=== PATIENT | female | born 1995 | race Caucasian/White ===

== ENCOUNTER 2017-11-21 13:02 | Outpatient (CLI) | payer OTHER | END 2017-11-21 13:03 | disposition home or self-care (01) | LOC: BICULT 13:02 | PROVIDERS: ATTEND Specialist | DX: E01.0 Iodine-deficiency related diffuse (endemic) goiter (principal) | CPT/HCPCS: 76536 ==

== ENCOUNTER 2018-02-24 19:16 | Day surgery (SDC) | payer OTHER ==
[2018-02-24 19:41] VITALS: BP 124/71; TEMP 98.8; BMI 39.5
[2018-02-24 20:15] LABS: Amnisure Internal Control QC ACCEPTABLE (ACCEPTABLE); Amnisure Test No Membranes Rupture (No Rupture)
--- NOTE | 2018-02-25 02:05 | SS ---
LABOR AND DELIVERY TRIAGE NOTE DATE OF EVALUATION: 02/24/2018 REGULAR PHYSICIAN: Ceci Sparks DO EVALUATING PHYSICIAN: Rob Howard MD CHIEF COMPLAINT: "leaking fluid at home" HISTORY OF PRESENT ILLNESS: Ms. Voss is a 22-year-old with an estimated date of confinement of 03/07/2018, who presents complaining of potentially leaking fluid since earlier today. She denies a gush of fluid, but states that she thought she was leaking only a small amount. She denies vaginal bleeding or decreased movement. Her care has been with Dr. Sparks and has been uncomplicated. PAST MEDICAL HISTORY: None. PAST SURGICAL HISTORY: Tonsillectomy. CURRENT MEDICATIONS: vitamins. ALLERGIES: None. SOCIAL HISTORY: Denies tobacco, alcohol, or drug use. FAMILY HISTORY: Unremarkable. REVIEW OF SYSTEMS: She denies nausea, vomiting, fever, chills, or decreased movement. PHYSICAL EXAMINATION: VITAL SIGNS: Stable. She is afebrile. ABDOMEN: Soft, nontender, and gravid. Pelvic exam by labor nurse in triage shows the cervix to be 1 thick with a vertex high. heart rate tracing is stable. There were spontaneous accelerations. Irregular uterine contractions are seen every 3-5 minutes. These are mild to palpation. AmniSure returns negative. ASSESSMENT: 1. 38-week intrauterine . 2. No evidence of ruptured membranes. PLAN: She has a followup appointment with Dr. Sparks later this week. She was given complete labor precautions and voiced understanding of these and was sent home in good condition. [facility]
== END 2018-02-24 20:58 | disposition home or self-care (01) ==
LOC: L&D/OP 19:16
PROVIDERS: ATTEND Obstetrics & Gynecology
DX: Z03.79 Encounter for other suspected maternal and fetal conditions ruled out (principal); Z3A.38 38 weeks gestation of pregnancy
CPT/HCPCS: 84112; 99283

== ENCOUNTER 2018-03-04 09:17 | Day surgery (SDC) | payer OTHER ==
[2018-03-04 10:23] VITALS: BMI 39.5
--- NOTE | 2018-03-04 12:58 | HP ---
DATE OF SERVICE: 03/04/2018 PRIMARY INTERNET CAFE MANAGER: Dr. Ceci Sparks. CHIEF COMPLAINT: Nausea. HISTORY OF PRESENT ILLNESS: The patient is a 22-year-old G1, P0 female with an intrauterine pregnanc y at 39 weeks and 4 days, who presents to Labor and Delivery with concerns of nausea and elevated blo od pressures at home. Patient is scheduled for an induction of labor this . She denies uter ine contractions, vaginal bleeding, leakage of fluid, any recent fever, fall, headache, chest pain, s hortness of breath. The nausea has since resolved at the time of my evaluation. The patient denies constipation, diarrhea, any new rashes, hip problems, knee problems, muscle weakness, vaginal bleedin g, leakage of fluid, urinary urgency or frequency. PAST MEDICAL HISTORY: Negative. PAST SURGICAL HISTORY: Tonsillectomy as a child. SOCIAL HISTORY: Denies drug, alcohol or tobacco use. ALLERGIES: No known drug allergies. MEDICATIONS: vitamins. OB LABORATORY DATA: Blood type is O positive, antibody screen is negative, HIV is nonreactive, RPR i s nonreactive in the third trimester. Hepatitis B surface antigen is nonreactive. One hour Glucola was 97. She is rubella nonimmune. REVIEW OF SYSTEMS: Per HPI. PHYSICAL EXAMINATION: VITAL SIGNS: Blood pressure 103/64, heart rate of 104, respiratory rate 18, satting 96% on room air, temperature 98.5. GENERAL: She appears to be in no acute distress. She is alert and oriented, cooperative and pleasan t to interact with. HEENT: Head is normocephalic, atraumatic. LUNGS: Clear to auscultation bilaterally. HEART: Has a regular rate and rhythm. ABDOMEN: Soft, gravid, nontender to palpation. EXTREMITIES: Nontender with some mild bilateral edema. GENITOURINARY: Has been deferred. HEART TRACING: Fetus has a baseline in the 130s with moderate long-term variability, positive accelerations, no decelerations. Tocometer shows some irritability. ASSESSMENT AND PLAN: The patient is a 22-year-old G1, P0 with an intrauterine at 39 weeks and 4 days, who has had spontaneous resolution of her nausea. Blood pressures all appear within norm al limits here at the hospital after a one hour of evaluation. The patient is being discharged to [facility] with term labor precautions. She is scheduled for an induction of labor on .
== END 2018-03-04 11:29 | disposition home or self-care (01) ==
LOC: L&D/OP 09:17
PROVIDERS: ATTEND Obstetrics & Gynecology
DX: O99.89 Other specified diseases and conditions complicating pregnancy, childbirth and the puerperium (principal); R03.0 Elevated blood-pressure reading, without diagnosis of hypertension; R11.0 Nausea; Z3A.39 39 weeks gestation of pregnancy
CPT/HCPCS: 99282

== ENCOUNTER 2018-03-07 05:30 | Inpatient (IN) | payer OTHER ==
--- NOTE | 2018-03-05 20:48 | PDOC.LDHP ---
Labor and Delivery H&P Chief complaint: scheduled induction HPI: 22 yo G1 @ 40w0d by LMP c/w 2nd trimester sono who presents for EIOL. Antepartum course benign. Current gestational age (weeks): 40 Due date: 03/07/18 Dating criteria: last menstrual period Grav: 1 Para: 0 Current complications: none Abnormal US findings: No Past Medical History: Obesity Current medications: pre- vitamins Previous surgical history: other (Tonsillectomy) Allergies/Adverse Reactions: Allergies Allergy/AdvReac Type Severity Reaction Status Date / Time No Known Allergies Allergy Verified 03/07/18 09:53 Social history: none - Physical Exam Vital signs reviewed and normal: yes General: NAD Heart: RRR Lungs: nonlabored breathing Abdomen: gravid Extremeties: no edema FHT: category 1 (130s, mod jon, +accels, no decels) [place] contractions every: q1-2 min - Vaginal Exam cm dilated: 3 (cephalic) Effacement: 75% Station: -2 - OB Labs Blood type: O RH: positive Antibody Screen: negative HIV: negative RPR: negative HEPSAg: negative 1 hour GCT: negative GBS: negative Urine drug screen: not done Rubella: non-immune Additional Labs: Carrier screening negative - Assessment 40w0d IUP Class III Obesity EIOL - Plan Plan: admit to L&D, informed consent obtained, anesthesia consult for pain management -: Started pitocin for IOL
[2018-03-07] MEDS ORDERED: Lidocaine 1% (PF) 30 ML VIAL SC PRN (08:37)
[2018-03-07] MEDS ORDERED: Misoprostol 200 MCG TAB PR PRN (08:37)
[2018-03-07] MEDS ORDERED: Diphenoxylate HCl/Atropine Tablet PO PRN (08:37)
[2018-03-07] MEDS ORDERED: Methylergonovine 0.2 MG/ML VIAL IM PRN (08:37)
[2018-03-07] MEDS ORDERED: NS / Oxytocin 40 units/1000ml 1,000 ML IV PRN (08:37)
[2018-03-07] MEDS ORDERED: Carboprost 250 MCG/ML AMP IM PRN (08:37)
[2018-03-07] MEDS ORDERED: Acetaminophen 500 MG TAB PO PRN (08:37)
[2018-03-07] MEDS ORDERED: Butorphanol Tartrate 1 MG/ML VIAL SLOW IVP PRN (08:37)
[2018-03-07] MEDS ORDERED: Ondansetron HCl/PF 4 MG/2 ML Vial IVP PRN (08:37)
[2018-03-07] MEDS ORDERED: Ibuprofen 800 MG TAB PO PRN (08:37)
[2018-03-07] MEDS ORDERED: HYDROcodone/Acetaminophen 5/325 mg Tablet PO PRN (08:37)
[2018-03-07] MEDS ORDERED: Promethazine HCl 25 MG/ML VIAL IM PRN (08:37)
[2018-03-07] MEDS: Lactated Ringer's 1,000 ML IV SCH ×3 (08:40→18:33)
[2018-03-07 08:58] LABS: Hemoglobin 11.1 g/dL (12.0-16.0); Mean Corpuscular HGB CONC 33.1 g/dL (32.0-36.0); Mean Corpuscular Hemoglobin 26.1 pg (27.0-31.0); Mean Corpuscular Volume 78.8 fL (78.0-98.0); Mean Platelet Volume 8.9 fL (7.4-10.4); Platelet Count 210 thou/uL (130-400); RBC Distribution Width 14.6 % (11.5-14.5); Red Blood Cell (RBC) Count 4.25 mill/uL (4.20-5.40); White Blood Cell (WBC) Count 11.9 thou/uL (4.8-10.8)
[2018-03-07] MEDS: NS w/ Oxytocin 10 units 500 ML IV SCH (09:00)
[2018-03-07 09:23] LABS: Syphilis Antibody Nonreactive (Nonreactive); Syphilis Antibody Index 0.03 S/CO (<1.00 Non-Reactive)
[2018-03-07 09:57] VITALS: BMI 42.3
[2018-03-07 10:20] LABS: HBSAg Index 0.17 S/CO (0-0.99); Hep B Surf Ag Non-Reactive S/CO (NonReactive)
[2018-03-07 10:21] LABS: HIV (1/2) Antibody/Antigen Non-Reactive (NonReactive); HIV 1/2 INDEX 0.12 S/CO (<1.00)
[2018-03-07] MEDS ORDERED: DISCONTINUE ALL PREVIOUS NARCOTICS FS SCH (13:00)
[2018-03-07] MEDS ORDERED: Bupivacaine 0.75% 13.4 ML, fentaNYL Citrate/PF 400 MCG in Sodium Chloride 0.9% 78.6 ML EPIDURAL SCH (13:00)
[2018-03-07] MEDS ORDERED: Lidocaine HCl/Epinephrine 5 ML AMPUL IJ ONE (16:52)
--- NOTE | 2018-03-07 17:15 | PDOC.LDPN ---
Labor & Delivery Progress Note - Subjective Subjective: painful contractions - Objective Vital signs reviewed and normal: yes General: breathing through contractions Uterine fundus: palpable contractions Dilation: 4 Effacement: 75% Station: -2 FHT: category 1 (130s, mod jon, +accels, no decels ) [place] contractions every: q1-2 min AROM: clear fluid IUPC placed: yes - Assessment (1) Elective induction of labor planned Code(s): [id number] - Current Visit: Yes Status: Acute Plan: continue plan of care, pitocin for augmentation
[2018-03-08] MEDS: Lactated Ringer's 1,000 ML IV SCH ×2 (02:26→21:21)
[2018-03-08] MEDS: NS w/ Oxytocin 10 units 500 ML IV SCH (02:26)
[2018-03-08] MEDS ORDERED: CEFAZOLIN/Water 2 GM/20 ML SYRINGE ONE (03:31)
[2018-03-08] MEDS ORDERED: Bicitra 30 ML UDCUP ONE (03:31)
[2018-03-08] MEDS ORDERED: Lidocaine 2% 10 ML INJ ONE (03:38)
[2018-03-08] MEDS ORDERED: Ondansetron HCl/PF 4 MG/2 ML Vial ONE (03:49)
[2018-03-08] MEDS ORDERED: Morphine PF 1 MG/ML SYR ONE (03:49)
[2018-03-08] MEDS ORDERED: Fentanyl 100 MCG/2 ML VIAL ONE ×3 (03:49→04:53)
[2018-03-08] MEDS ORDERED: Ketorolac Tromethamine 30 MG/ML VIAL ONE ×2 (03:49→15:51)
[2018-03-08] MEDS ORDERED: Oxytocin 10 UNITS/ML VIAL ONE (03:49)
--- NOTE | 2018-03-08 03:54 | PDOC.LDPN ---
Labor & Delivery Progress Note - Subjective Subjective: comfortable - Objective Vital signs reviewed and normal: yes General: NAD Uterine fundus: non tender SVE: OP position Dilation: 6 Effacement: 90% Station: -2 FHT: category 2 (120s, mod jon, +accels, prolonged decels to 90s x 7+ min and one to 70s x 4 min ) [place] contractions every: inadequate MVUs, q2-4 min prior to decels FSE placed: yes Resuscitative measures: maternal oxygen, maternal IV fluids, maternal position change - Assessment (1) Elective induction of labor planned Code(s): [id number] - Current Visit: Yes Status: Acute -: Reviewed FHTs with pt. Due to prolonged decels with inadequate contractions and remote from delivery, recommended PLTCS khan NRFHTs and pt amenable. To OR for PLTCS, all questions answered.
[2018-03-08] MEDS ORDERED: Bupivacaine/Epinephrine 0.5% 10 ML VIAL ONE (04:12)
[2018-03-08] MEDS ORDERED: Ketamine 50 MG/ML VIAL ONE (04:22)
[2018-03-08] MEDS ORDERED: PROPOFOL 0 ML ONE (04:22)
[2018-03-08] MEDS ORDERED: Midazolam HCl 2 mg/2 ml Vial ONE (04:24)
[2018-03-08] MEDS ORDERED: Azithromycin 500 MG in Sodium Chloride 0.9% 250 ML 250 ML IVPB SCH (04:30)
[2018-03-08 04:40] LABS: Actual Bicarbonate (HCO3a) 26.9 mEq/L (22-28); Base Excess (BEa) -1.3 mEq/L (-2.0 to +3.0)
--- NOTE | 2018-03-08 04:57 | PDOC.EVN ---
Event Note - Event Note Event Note: CSA assist note: I scrubbed in and assisted Dr potts on this primary LTCS for nonreassuring FHTS. Please see full dictation by Dr Potts.
--- NOTE | 2018-03-08 05:01 | PDOC.OPDEL ---
OB Operative/Delivery Note Delivery Dr/Surgeon: Ceci Sparks DO Assist: Carlos Alberto Ervin MD Pre-Delivery Diagnosis: non-reassuring tracing Procedure/Post Delivery Dx: primary low transverse CS Weeks gestation: 40 Anesthesia: epidural - Findings A Sex: male Weight: 8 lb 11 oz - 1 min: 8 - 5 min: 9 - Additional Findings/Plan Placenta delivered: spontaneous findings: low transverse hysterotomy without extension, normal uterus, normal tubes, normal ovaries (?PCOS apperance) Estimated blood loss: 590 cc Compilations/Other Findings: in cephalic presentation, OP position Clear AF Normal appearing placenta Post delivery plan: routine recovery
[2018-03-08] MEDS ORDERED: Naloxone HCl 0.4 mg/ml Vial IV PRN (06:25)
[2018-03-08] MEDS ORDERED: Meperidine HCl/PF 25 MG/ML VIAL SLOW IVP PRN (06:25)
[2018-03-08] MEDS ORDERED: diphenhydrAMINE 50 MG/ML VIAL IVP PRN (06:25)
[2018-03-08] MEDS ORDERED: Promethazine HCl 25 MG/ML VIAL IM PRN (06:25)
[2018-03-08] MEDS ORDERED: Ketorolac Tromethamine 30 MG/ML VIAL IVP PRN (06:25)
[2018-03-08] MEDS ORDERED: Naloxone HCl 0.4 mg/ml Vial IVP PRN ×2 (06:25)
[2018-03-08] MEDS ORDERED: Eucerin (Mineral Oil/Petrolatum,White) 30 gm Jar TOP PRN (06:25)
[2018-03-08] MEDS ORDERED: Promethazine HCl 25 MG SUPP PR PRN (06:25)
[2018-03-08] MEDS ORDERED: Ondansetron HCl/PF 4 MG/2 ML Vial IVP PRN ×2 (06:25)
[2018-03-08] MEDS ORDERED: HYDROmorphone 2 MG/ML VIAL SLOW IVP PRN (06:25)
[2018-03-08] MEDS ORDERED: Communication Order-Pharmacy FS SCH (06:30)
[2018-03-08] MEDS ORDERED: Ketorolac Tromethamine 30 MG/ML VIAL IVP SCH (06:30)
[2018-03-08] MEDS ORDERED: Meperidine HCl/PF 25 MG/ML VIAL ONE (06:45)
[2018-03-08] MEDS ORDERED: Ibuprofen 800 MG TAB PO SCH ×2 (08:10→08:30)
[2018-03-08] MEDS ORDERED: Misoprostol 200 MCG TAB PR PRN (08:10)
[2018-03-08] MEDS ORDERED: HYDROcodone/Acetaminophen 5/325 mg Tablet PO PRN (08:10)
[2018-03-08] MEDS ORDERED: Bisacodyl 10 MG SUPP PR PRN (08:10)
[2018-03-08] MEDS ORDERED: Zolpidem Tartrate 5 MG TAB PO PRN (08:10)
[2018-03-08] MEDS ORDERED: Simethicone Chewable 80 MG TAB PO PRN (08:10)
[2018-03-08] MEDS ORDERED: Methylergonovine 0.2 MG/ML VIAL IM PRN (08:10)
[2018-03-08] MEDS ORDERED: diphenhydrAMINE 25 MG CAP PO PRN (08:10)
[2018-03-08] MEDS ORDERED: Morphine 4 MG/ML VIAL IV SCH (08:45)
--- NOTE | 2018-03-08 09:01 | OP ---
PREOPERATIVE DIAGNOSES: 1. A 40-week and 1-day intrauterine . 2. Elective induction. 3. Protracted labor. 4. Nonreassuring heart tones. POSTOPERATIVE DIAGNOSES: 1. A 40-week and 1-day intrauterine . 2. Elective induction. 3. Protracted labor. 4. Nonreassuring heart tones. 5. Cephalopelvic disproportion. PROCEDURE: Primary low transverse delivery via Pfannenstiel skin incision. SURGEON: Ceci Sparks DO MARKET RESEARCH COORDINATOR: Carlos Alberto Ervin MD COMPLICATIONS: None. ANESTHESIA: Epidural with Duramorph. ESTIMATED BLOOD LOSS: 590 mL. URINE OUTPUT: 200 mL IV FLUIDS: 500 mL FINDINGS: 1. Normal appearing uterus, fallopian tubes, and ovaries bilaterally. 2. Clear amniotic fluid. 3. Viable male infant with Apgars 8 and 9 in occiput posterior position, weighing 8 pounds and 11 ounces. 4. Normal appearing placenta. INDICATIONS FOR THE PROCEDURE: Ms. Barbara Voss is a 22-year-old at 40 weeks and 1 day who underwent an elective induction, the patient progressed to 6 cm; however, did have a protracted course without further change. The heart rate then displayed a prolonged deceleration with one deceleration into the 90s for approximately 7 minutes and an additional deceleration into the 70s for approximately 4 minutes. Intrauterine resuscitation measures were performed with resolution of bradycardia and her Pitocin was discontinued. The decelerations occurred when the patient was inadequately nicola. Due to being remote from delivery and nonreassuring heart tones, the patient was counseled and a primary delivery was recommended. The patient was amenable to the procedure. PROCEDURE IN DETAIL: The patient was brought to the operating room. She already had an epidural for anesthesia. She was placed in supine position with a leftward tilt. Ram catheter was in place. The patient was prepped and draped in a sterile fashion and an official timeout was performed. She was given Ancef preoperatively for surgical prophylaxis and will be given azithromycin postoperatively as well. The anesthesia was assessed and proven to be adequate. A Pfannenstiel skin incision was made. This was carried down to underlying fascial layer. The fascia was then incised in the midline using the scalpel and extended bilaterally using Ramirez scissors. The superior aspect of the fascial incision was grasped using Olayinka clamps, tented upward and dissected free from the underlying rectus abdominis muscles and the same was performed to the inferior aspect of the fascial incision. The peritoneum was then entered using sharp dissection and extended using blunt dissection. Pedro O retractor was placed into the abdomen and a low transverse hysterotomy was made using the scalpel and this was extended using blunt dissection. Amniotic membranes were ruptured, noting clear amniotic fluid. was delivered in cephalic presentation, occiput posterior position without difficulty. 's cord was clamped and cut and infant was handed to the waiting Neonatology team. Cord sample for cord gases were obtained and cord blood was also obtained. The placenta was delivered spontaneously intact. The uterus was cleared of all clot and debris. The hysterotomy was closed in a running locking fashion and hemostatic. The pelvis was irrigated and cleared of all clot and debris. The fallopian tubes and ovaries were evaluated and appeared normal. Pedro O retractor was removed from the abdomen. The peritoneum was closed in a running fashion using 2-0 chromic. Rectus abdominis muscles were evaluated and noted to be hemostatic. The fascia was closed in a running fashion using 0 PDS. The subcutaneous layer was copiously irrigated and hemostatic with the use of the Bovie. The subcutaneous layer was closed using 3-0 Vicryl. The skin was closed using 4-0 Monocryl and Dermabond. The patient tolerated the procedure well. There were no complications. Both mother and baby will be transferred to routine recovery. All counts were correct x3. MTDD
[2018-03-08] MEDS: Docusate Calcium (SURFAK) 240 MG CAP PO SCH ×2 (09:34→21:21)
[2018-03-08] MEDS: Prenatal Vitamin 1 TAB PO SCH (09:34)
[2018-03-08] MEDS: Ibuprofen 800 MG TAB PO SCH ×2 (20:32→21:21)
[2018-03-09] MEDS: Lactated Ringer's 1,000 ML IV SCH ×2 (01:56→14:25)
[2018-03-09] MEDS: Ibuprofen 800 MG TAB PO SCH ×3 (05:53→21:25)
[2018-03-09 08:13] LABS: #Basophils 0.1 thou/uL (0.0-0.2); #Eosinphils 0.1 thou/uL (0.0-0.7); #Lymphocytes 1.3 thou/uL (1.20-3.40); #Neutrophils 8.9 thou/uL (1.40-6.50); %Basophils 0.5 % (0.0-1.0); %Eosinophils 0.8 % (0.0-10.0); %Lymphocytes 11.5 % (21.0-51.0); %Monocytes 8.4 % (0.0-10.0); %Neutrophils 78.8 % (42.0-75.0); Hemoglobin 8.5 g/dL (12.0-16.0); Mean Corpuscular HGB CONC 33.6 g/dL (32.0-36.0); Mean Corpuscular Hemoglobin 26.9 pg (27.0-31.0); Mean Platelet Volume 7.8 fL (7.4-10.4); Platelet Count 135 thou/uL (130-400); RBC Distribution Width 15.1 % (11.5-14.5); Red Blood Cell (RBC) Count 3.17 mill/uL (4.20-5.40); White Blood Cell (WBC) Count 11.3 thou/uL (4.8-10.8)
[2018-03-09] MEDS: Docusate Calcium (SURFAK) 240 MG CAP PO SCH ×2 (14:25→21:25)
[2018-03-09] MEDS: Prenatal Vitamin 1 TAB PO SCH (14:25)
[2018-03-10] MEDS: HYDROcodone/Acetaminophen 5/325 mg Tablet PO PRN (00:44)
[2018-03-10] MEDS: Ibuprofen 800 MG TAB PO SCH ×3 (06:07→21:41)
[2018-03-10] MEDS: Lactated Ringer's 1,000 ML IV SCH ×3 (06:16→13:14)
[2018-03-10] MEDS: Docusate Calcium (SURFAK) 240 MG CAP PO SCH ×2 (08:16→21:41)
[2018-03-10] MEDS: Prenatal Vitamin 1 TAB PO SCH (08:16)
--- NOTE | 2018-03-10 09:26 | PRG ---
DATE OF SERVICE: 03/10/2018 TIME OF SERVICE: 07:30 SUBJECTIVE: Ms. Voss is postoperative day #2 status post primary section for non-reassuri ng heart rate tracing. She is resting well. She has no complaints. PHYSICAL EXAMINATION: VITAL SIGNS: Temperature is 98.4, pulse is 104, respirations 24, blood pressure 138/74, pulse is ran ging between 105 and 120 over the past 24 hours with respiratory rate between 16 and 24. She has bee n afebrile. LUNGS: Clear to auscultation bilaterally. HEART: Regular rhythm. BREASTS: Without masses bilaterally. ABDOMEN: Soft and nontender, without rebound or guarding. Her incision is intact and dry without er ythema. No purulent discharge. EXTREMITIES: Without clubbing, cyanosis, or edema. LABORATORY DATA: Hematocrit postoperatively went from 33.5-25.4, otherwise unremarkable. IMPRESSION: Anemia secondary to intraoperative blood loss; , status post postoperative day #2 with mild tachycardia; otherwise, without any evidence of symptomatic anemia or infection. The pa tient is ambulating without dizziness. PLAN: Continue hospitalization. Routine care. Follow vital signs.
[2018-03-11] MEDS: Lactated Ringer's 1,000 ML IV SCH ×2 (00:35→07:28)
[2018-03-11] MEDS: Ibuprofen 800 MG TAB PO SCH (05:05)
[2018-03-11] MEDS: HYDROcodone/Acetaminophen 5/325 mg Tablet PO PRN (05:05)
[2018-03-11 07:49] VITALS: BP 120/72; TEMP 98
--- NOTE | 2018-03-11 07:52 | PDOC.PP ---
Post Progress Note Post Day #: 3 Subjective: Doing well. No complaints. Breast feeding. Minimal-moderate lochia. No palpitations, f/c or other concerns. Ambulating w/o dizziness. PO intake tolerated: yes Flatus: yes Ambulation: yes Vital Signs (12 hours) Temp Pulse Resp BP BP Pulse Ox 03/11/18 07:48 98.0 F 98 20 120/72 03/11/18 05:00 98.2 F 96 20 131/72 98 03/11/18 00:45 98.9 F 100 20 135/76 98 03/10/18 20:25 98.6 F 108 H 20 128/62 96 Weight Weight 270 lb - Physical Examination General: NAD Cardiovascular: RRR Respiratory: non-labored breathing Abdominal: no distention, appropriately TTP Fundus firm & at: below umbilicus Extremities: negative homans (B) Skin: CS incision dry & intact Neurological: no gross focal deficits Psychiatric: A&Ox3 Result Diagrams: 03/09/18 08:07 Additional Labs: Post Labs Blood Type O POSITIVE 03/07/18 08:38 Hep Bs Antigen Non-Reactive S/CO (NonReactive) 03/07/18 08:38 (1) Elective induction of labor planned Code(s): [id number] - Status: Resolved (2) Anemia Code(s): D64.9 - ANEMIA, UNSPECIFIED Status: Acute Qualifiers: Other causes of anemia: acute posthemorrhagic (3) delivery delivered Code(s): O82 - ENCOUNTER FOR DELIVERY WITHOUT INDICATION Status: Acute - Assessment/Plan PPD3 VSSAF Tachycardia has resolved, likely due to post op anemia. Asx. Stable for d/c home. RTC 2 weeks incision check.
[2018-03-11] MEDS ORDERED: Ferrous Sulfate 325 MG TAB PO SCH (08:00)
[2018-03-11] MEDS: Docusate Calcium (SURFAK) 240 MG CAP PO SCH (08:06)
[2018-03-11] MEDS: Prenatal Vitamin 1 TAB PO SCH (08:06)
[2018-03-11] MEDS ORDERED: Measles/Mumps/Rubella 10 MCG/0.5 ML VIAL SC ONE (10:45)
== END 2018-03-11 12:09 | disposition home or self-care (01) | DRG 765 ==
LOC: L&D 06:45 → 3SE 03-08 07:45
PROVIDERS: ADMIT Obstetrics & Gynecology; ATTEND Obstetrics & Gynecology
PROC: 10D00Z1 Extraction of Products of Conception, Low, Open Approach (ICD-10-PCS; principal; 2018-03-08)
DX: O76 Abnormality in fetal heart rate and rhythm complicating labor and delivery (principal); O63.9 Long labor, unspecified; O48.0 Post-term pregnancy; Z37.0 Single live birth; Z3A.40 40 weeks gestation of pregnancy; O33.9 Maternal care for disproportion, unspecified; O90.81 Anemia of the puerperium; O99.213 Obesity complicating pregnancy, third trimester
CPT/HCPCS: 36415; 51702; 82805; 85025; 85027; 86780; 86850; 86900; 86901; 87340; 87389; 90707; A4216; J0456; J1885; J2175; J2250; J2270; J2274; J2405; J2590; J2704; J3010; J3490; J7050